=== PATIENT | male | born 1980 | race Caucasian/White ===

== ENCOUNTER 2023-07-24 16:35 | Emergency (ER) | payer MEDICAID ==
[~2023-07-24] VITALS: Ht 175.3 cm; Wt 78.0 kg
[2023-07-24 16:42] VITALS: BP 128/87; PULSE 96; RESP 16; TEMP 98.1; O2SAT 98
[2023-07-24] MEDS ORDERED: IPRA3AMP9 NEB (17:00)
[2023-07-24] MEDS ORDERED: P20 PO (17:00)
[2023-07-24] MEDS ORDERED: ALBU6.7H15 INH (17:01)
== END 2023-07-24 17:24 | disposition home or self-care (01) ==
LOC: ER 16:43
DX: J45.901 Unspecified asthma with (acute) exacerbation (principal)
CPT/HCPCS: 99283